=== PATIENT | female | born 1990 | race Caucasian/White ===

== ENCOUNTER 2021-09-24 14:49 | Outpatient (CLI) | payer BC, SELFPAY ==
--- OUTSIDE RECORDS SUMMARY | 2021-09-24 14:51 | XMS_ITS ---
:1990 Author Care Team Providers Name Role Phone Riley Castillo Primary Care Provider Unavailable Allergies None recorded. Medications Name Status Start Date Stop Date ? ? norethindrone (contraceptive) 0.35 mg tablet Active ? Not available TAKE 1 TABLET BY MOUTH DAILY sertraline 25 mg tablet Active ? Not avai lable sertraline 50 mg tablet Active ? Not avai lable Problems None recorded. Procedures None recorded. Results Lab Results Date Name Specimen Result Interpretation Description Value Range Status Address ? 12/27/2020 Rapid SARS CoV Nasopharyngeal ? Results negative ? ? Drew [facility] Ag, QL [place]: Specimen [id number] [facility] Past Encounters 01/10/2021 Exposure to SARS-CoV-2; Counseling Riley Castillo APRN-BLOW DOWN HELPER-C: [id number] [place] [address], Ph. [phone] 12/27/2020 Exposure to SARS-CoV-2; Counseling Riley Castillo APRN-BLOW DOWN HELPER-C: [address] [place] [address], Ph. [phone] Social History None recorded. Vaccine List None recorded. Plan of Care Patient Instructions Keep a safe distance. ... ? Wear a mask. ... ? Encourage proper hygiene. ... ? The best way to protect yourself and o thers is to stay home for 14 days if you think you’ve been exposed to someone who has COVID-19. ? Watch for fever (100.4?F or higher), c ough, shortness of breath, or other symptoms of COVID-19. ? Consider getting tested for COVID-19. Even if you test negative for COVID-19 or feel healthy, you should still stay home (quarantine) for 14 days after your last contact with a person who has COV ID-19. This is because symptoms may appe ar 2 to 14 days after exposure to the virus, and some infected people never have symptoms but are still contagious. ? Do not travel until 14 days after your last possible exposure. ? Monitor yourself and household members for symptoms of COVID-19. ? Get information about COVID-19 testing if you feel sick. Look for emergency warning signs* for CO VID-19. If you have any of these signs, seek emergency medical care immediately ? Trouble breathing ? Persistent pain or pressure in the [address] ? New confusion ? Inability to wake or stay awake Keep a safe distance. ... ? Wear a mask. ... ? Encourage proper hygiene. ... ? The best way to protect yourself and o thers is to stay home for 14 days if you think you’ve been exposed to someone who has COVID-19. ? Watch for fever (100.4?F or higher), c ough, shortness of breath, or other symptoms of COVID-19. ? Consider getting tested for COVID-19. Even if you test negative for COVID-19 or feel healthy, you should still stay home (quarantine) for 14 days after your last contact with a person who has COV ID-19. This is because symptoms may appe ar 2 to 14 days after exposure to the virus, and some infected people never have symptoms but are still contagious. ? Do not travel until 14 days after your last possible exposure. ? Monitor yourself and household members for symptoms of COVID-19. ? Get information about COVID-19 testing if you feel sick. Look for emergency warning signs* for CO VID-19. If you have any of these signs, seek emergency medical care immediately ? Trouble breathing ? Persistent pain or pressure in the imel[address] ? New confusion ? Inability to wake or stay awake Reminders Provider Appointments None recorded. ? ? Lab None recorded. ? ? Referral None recorded. ? ? Procedures None recorded. ? ? Surgeries None recorded. ? ? Imaging None recorded. ? ? Vitals None recorded.
[2021-09-26 08:26] LABS: Strep B DNA Probe NEGATIVE (Negative)
== END 2021-09-24 14:50 | disposition home or self-care (01) ==
LOC: NFLDREF 14:50
PROVIDERS: Visit Provider Obstetrics & Gynecology
DX: Z34.93 Encounter for supervision of normal pregnancy, unspecified, third trimester (principal); Z3A.35 35 weeks gestation of pregnancy
CPT/HCPCS: 87081; 87653

== ENCOUNTER 2021-10-17 23:52 | Inpatient (IN) | payer BC, SELFPAY ==
--- OUTSIDE RECORDS SUMMARY | 2021-10-17 23:52 | XMS_ITS ---
[...] [place]: Specimen [id number] [facility] Past Encounters 01/10/2021 Exposure to SARS-CoV-2; Counseling Riley Castillo APRN-LEVEL [employer]MING MACHINE OPERATOR-C: [address] [place] [address], Ph. [phone] 12/27/2020 Exposure to SARS-CoV-2; Counseling Riley Castillo APRN-LEVEL [employer] FORMING MACHINE OPERATOR-C: [address] [place] [address], Ph. [phone] Social History None recorded. Vaccine List None [...]
[2021-10-18] VITALS (30 sets, daily range): BP systolic 97–127; BP diastolic 51–72; PULSE 57–90; RESP 16–18; TEMP 36.4–36.8; O2SAT 88–99; BMI 26.0
[2021-10-18] MEDS: fentaNYL 100 MCG/2 ML inj IVP (00:17)
[2021-10-18] MEDS: ONDANSETRON 2 MG/ML inj 4 MG IV (00:18)
[2021-10-18] MEDS: LACTATED RINGERS 1000 ML 1,000 ML IV (00:20)
--- NOTE | 2021-10-18 01:02 | P.ANBPRC_ITS ---
[facility] Medical History History of abnormal cervical Papanicolaou smear Surgical History History of placement of ear tubes Status post loop electrosurgical excision procedure (LEEP) of cervix Social History Smoking Status: Never smoker Meds Home Medications and Allergies Home Medications Medication Instructions Recorded Confirmed Type docosahexaenoic acid 200 mg 200 mg PO QDAY 08/15/21 10/17/21 History capsule ( DHA) ferrous sulfate 325 mg (65 mg 325 mg PO DAILY 08/15/21 10/17/21 History iron) tablet magnesium oxide 400 mg (241.3 mg 400 mg PO DAILY 08/15/21 10/17/21 History magnesium) tablet Allergies Allergy/AdvReac Type Severity Reaction Status Date / Time No Known Allergies Allergy Unknown Verified 10/17/21 14:51 Results Vital Signs Vital Signs: Last Vital Signs Pulse 59 L 10/18/21 00:58 BP 108/53 L 10/18/21 00:58 Pulse Ox 92 10/18/21 00:52 Anesthesia Procedures Intrathecal Patient Location: OB Start Time: 00:25 Stop Time: 00:55 Start Date: 10/18/21 Stop Date: 10/18/21 Reason for Block: primary anesthetic Patient Position: sitting Performed By: Mando Hernandez Preanesthetic Checklist: IV checked, risks and benefits discussed and anesthesia consent Prep: chlorhexidine gluconate Monitoring: blood pressure monitoring, continuous pulse oximetry and heart rate Approach: midline Vertebral Space: lumbar (1-5) Needle Type: Sprotte Injection Technique: single-shot Needle gauge: 25 Needle Length (cm): 10 cm
[2021-10-18] MEDS: OXYTOCIN 30 unit/500 ML in NS 30 UNIT/500 ML BAG 325 UNIT IVPB (01:25)
[2021-10-18 01:31] LABS: SARS PCR* Negative SARS-CoV-2 (Negative)
--- NOTE | 2021-10-18 01:46 | W.PM.LDBA ---
Subjective History of Present Illness Date Seen: 10/18/21 Narrative: Patient is being admitted to Labor and Delivery for active labor at term. She is a 31 year old at 39.0 weeks gestation. Her full history and physical was dictated by Dr. Altamirano on 10/11/21. Please see this for details. She arrived to L&D lupillo every 2-3 min and breathing through them. She was admitted at that time and was requesting an epidural. I was called in a short time later as she was 8cm and feeling an urge to push. when I arrived on the unit she has received an intrathecal. She was more comfortable than perviously but still feeling a lot of pressure and an urge to push. She was complete at that time. Previous records requested.? Reviewed outside records on 04/25/21: included only third trimester visit records from in 2018. 1. H/o LEEP in 2016: NATHAN 3 with negative margins Last pap: 10/2019: NIL, neg HPV 2. H/o anxiety and depression: Sertraline 50mg 3. Anemia.? Hemoglobin 10.5 on 07/25/2021. Begin iron supplement 325 mg daily. Recheck Hgb @ 36 weeks:? 11.3 on 09/25/2019 OB - H&P: Exam Physical Exam: Vital signs: Pulse BP Pulse Ox 69 121/70 92 10/18/21 01:42 10/18/21 01:42 10/18/21 00:52 Constitutional: Constitutional: no acute distress Routine HEENT Exam: Head: Present normal inspection Eye: Present normal appearance Routine Neck Exam: Neck: Present full ROM Routine Respiratory Exam: Respiratory: Present CTA bilaterally Routine Cardiovascular Exam: Cardiovascular: RRR Detailed Labor and Delivery Exam: Patient Gravid: yes Dilation (cm): 10 Effacement (%): 100 Tachysystole: No Contraction intensity: Strong/Firm Fetus (Single): Station: 0 Amniotic Membrane Status: AROM Amniotic Membrane Fluid Description: Clear Heart Rate Baseline: 120 Monitor Accelerations: Present Monitor Decelerations: Late Detention Variability: Moderate (11-25) (6-25) Routine Extremities Exam: Extremities: Present full ROM Routine Back/Spine/Pelvis Exam: Back/Spine: full ROM Routine Neurological Exam: Present alert and oriented X3 Routine Psychiatric Exam: Present normal affect and normal thought process OB - Problem Based A/P Additional Plan (1) Active labor at term: Status: Acute Plan ASSESSMENT:? at 39.0 weeks gestation? GBS negative? Uncomplicated ? Active labor at term? ?? PLAN:? 1. Candidate for analgesia of choice. Planning unmedicated .? 2. Anticipate ? 3. Expectant management at this time.? 4. IV in place and infusing 5. Continuous monitoring per unit policy? Delivery/Labor/Induction Plan Plan: expectant management
--- NOTE | 2021-10-18 01:57 | PM.OBPRCVD ---
Procedure Delivery date: 10/18/21 Procedure Done: Global Procedure Details: Patient is a 31 year-old G4 now P3 admitted on 10/18/21 at 39 Weeks, 0 Days gestation for active labor.? Cervical exam on admission was 4 cm per RN exam with membranes intact in vertex presentation.? Contractions were every 2-3 minutes.? heart rate demonstrated baseline 120 bpm with moderate variability, + accelerations, occasional variable decelerations; a category 2 tracing.? AROM occurred at 0106 with clear fluid.? ?? Labor Analgesia:? ITN ?? Pitocin:? Yes, after delivery only? ?? Labor onset:? 2229? ?? Complete:? 0043? ?? Pushing:? 0109? ?? heart tones during second stage were 2. Some variable decelerations with good return to baseline and good variability with accels.? ?? At 0120 a viable male delivered in vertex SELENA presentation over intact perineum via spontaneous vaginal delivery.? was placed on maternal abdomen.? Cord was clamped and cut after about 1 minute delay so that baby could be taken to the warmer for closer assessment.? Nose and mouth were bulb suctioned.? weight pending.? 7 at 1 minute and 9 at 5 minutes.? Shoulder dystocia: no.? Nuchal cord: no.? ?? Placenta delivered spontaneously and complete at 0125 with a 3 vessel cord.? ?? Mother and were stable after delivery.? ?? Lacerations:? 1st degree periurethral and 1st degree perineal, neither requiring repair.? ?? Blood loss: 150 mL.? Blood loss measurement type: QBL? Sponge and needles counts are correct.? Intrapartal Events: Precipitous Labor <3 Hrs Delivery augmentation: rupture of membranes Delivery monitor: external FHT and external uterine Route of delivery: Episiotomy description: None Laceration description: Perineal - 1st Degree (plus a small 1st degree periurethral. Neither needed to be repaired.) Estimated blood loss (mL): 150 Anesthesia type: intrathecal Disposition: floor Infant Gender: Male presentation: vertex Placental Delivery Description: Spontaneous Cord Description: 3 Vessels [place] Infant A Position: Left Occiput Transverse OB Vag Delivery Procedures Additional Procedures ECV: No Cook Catheter Insertion: No NST: Yes D&C: No Laceration Repair: No Tubal Ligation : No Other: No
[2021-10-18] MEDS: IBUPROFEN 600 MG TABLET PO ×2 (04:22→13:56)
[2021-10-18] MEDS: SERTRALINE 50 MG TABLET PO (08:36)
[2021-10-18] MEDS: DOCUSATE SODIUM 100 MG CAPSULE PO (08:36)
[2021-10-18] MEDS: ACETAMINOPHEN 500 MG TABLET 1000 MG PO (17:59)
[2021-10-19 02:30] VITALS: BP 99/67; PULSE 76; RESP 16; TEMP 36.4
[2021-10-19] MEDS: ACETAMINOPHEN 500 MG TABLET 1000 MG PO ×2 (03:14→08:13)
[2021-10-19 07:33] LABS: Hemoglobin* 12.1 gm/dL (12.0-16.0)
--- NOTE | 2021-10-19 08:03 | PM.OBDSVD1 ---
DS: Providers Provider Date Seen: 10/19/21 Date of admission: 10/17/21 23:52 Primary care physician: Not a Local Provider Admitting Clinician: Genesis Martinez CNM Attending Physician on discharge: Genesis Martinez CNM Date of Discharge: 10/19/21 Exam Const: Vital Signs, click to edit/add: Vital Signs - 24 hr 10/18/21 09:30 10/18/21 12:30 10/18/21 18:00 Temperature 97.9 F 97.9 F 97.6 F Pulse Rate [Pulse Oximeter] 66 77 75 Respiratory Rate 16 16 16 Blood Pressure [Le ft Arm] 106/72 101/68 106/72 Pulse Oximetry 99 98 98 Oxygen Delivery Me thod Room Air Room Air Room Air 10/18/21 20:26 10/19/21 02:30 Temperature 97.9 F 97.6 F Pulse Rate [Pulse Oximeter] 76 76 Respiratory Rate 16 16 Blood Pressure [Le ft Arm] 102/69 99/67 Pulse Oximetry Oxygen Delivery Me thod Room Air Room Air Documenting provider has reviewed patient's vital signs: yes Common normals: no apparent distress, average body habitus, oriented x3, no limitations, healthy appearing, alert and well nourished HENMT: Common normals: normocephalic, hearing grossly normal bilaterally and external nose normal Head and scalp: normocephalic Face and sinus: normal facial exam Nose: external nose normal Eye: General eye: normal appearance of both eyes Neck & C-Spine: Common normals: full ROM, supple and no JVD Resp: Common normals: normal respiratory effort, no retractions, no use of accessory muscles and clear to auscultation bilaterally Auscultation: clear to auscultation bilaterally Cardio: Common normals: no JVD, regular rate, regular rhythm, S1 normal heart sound, S2 normal heart sound, no gallops, no clicks, no murmurs and no rub Rate: regular rate Rhythm: regular rhythm Heart sounds: S1 normal and S2 normal GI: Common normals: soft to palpation and non-tender Palpation: soft : OB/external & speculum: Yes deferred Extremity: Common normals: full ROM Neuro: Common normals: oriented x3 Sensorium/orientation: alert Psych: Common normals: mental status grossly normal and thought process normal Thought process: normal thought process OB - DS: Summary Hospital Course Hospital Course: Day 1:? Vaginal Delivery at 39 and 0/7 weeks. The patient is a 31 year old G 4 P 3 at 39.0 weeks gestation that was admitted to the [facility] on 10/17/21 for active labor. She had an uncomplicated vaginal delivery. She delivered a viable male infant.?The patient feels well.? The pain is well controlled with current medications.? She has no new complaints.? Urinary output is adequate and she is voiding without difficulty.? Has a good appetite, is tolerating a general diet, is passing flatus, and has not had a bowel movement.? Has?small amount of rubra lochia.? She is ambulating well.?She is breast feeding and denies concerns with how it is going. the patient has done well. Peripartum Data delivery method: Vaginal Laceration description: Perineal - 1st Degree (without repair) Episiotomy description: None complications: none [place] Infant Gender: Male Discharge Plan: Home Status at Discharge Functional status at discharge: independent ambulation Overall status at discharge: patient is progressing back to baseline Time Spent with Patient Time attestation: Total time spent providing and/or coordinating discharge services: Discharge Plan Discharge Disposition: Home, Self-Care Date of Admission: 10/17/21 23:52 Primary Care Provider: Provider,Not a Local Condition: Stable Anticipated Discharge Date/Time: 10/19/21 10:00 Discharge Medications: New docusate sodium 100 mg Capsule 100 mg PO DAILY PRNQty: 100 0RF Rx Instructions: Take 1-2 tablets daily as needed for constipation ibuprofen 600 mg Tablet 600 mg PO Q6H PRNQty: 60 0RF Continued DHA 200 mg capsule 200 mg PO QDAY sertraline 50 mg tablet 50 mg PO QDAY Qty: 90 2RF Discontinued magnesium oxide 400 mg (241.3 mg magnesium) tablet 400 mg PO DAILY ferrous sulfate 325 mg (65 mg iron) tablet 325 mg PO DAILY Discharge Orders: Discharge Order (Routine); Ordered 10/19/21 Ordered By: Genesis Martinez Patient Education: OB Vaginal/Breast Feeding Activity Restrictions/Additional Instructions: Discharge instructions were reviewed with the patient including signs and symptoms of infection and home going medications.? Off Work or School for 6 weeks.? ?? Symptoms to report to doctor:? -Bleeding that saturates more than one pad per hour? -Passing clots larger than the size of a golf ball? -Pain not relieved by prescribed medication? -Fever above 100.4 degrees Fahrenheit? -A foul vaginal odor? -Difficulty in emotions, mood and functions? -Thoughts of hurting yourself and/or ? -Painful, reddened area in your breast? -Any drainage, redness or tenderness in your IV/epidural site? -Severe headache that doesn't improve after taking medications? -Changes in vision, including temporary loss of vision, blurred vision, and/or light sensitivity? -Upper abdominal pain (usually under ribs on the right side)? -Decrease in urination or painful, frequent urinating? -Chest pain? -Shortness of breath? -Tenderness or pain with redness and/swelling in the calf(s) of your leg? ?? Follow Up in clinic in 2 and 6 weeks.? ?? consultation services are available to all mothers and babies for the first year after delivery.? To make an appointment, please call [phone].? Activity Level: No Restrictions and Activity as Tolerated Discharge Diet: Regular Follow Up Appointments: Provider,Not a Local [Primary Care Provider] - Forms: MyHealth Info Instructions
[2021-10-19] MEDS: DOCUSATE SODIUM 100 MG CAPSULE PO (08:13)
[2021-10-19 08:22] VITALS: BP 103/68; PULSE 76; RESP 20; TEMP 36.7; O2SAT 99
== END 2021-10-19 10:00 | disposition home or self-care (01) | DRG 560 ==
LOC: OB 10-18 06:32
PROVIDERS: Admitting Provider Advanced Practice Midwife; Visit Provider Advanced Practice Midwife
DX: O99.344 Other mental disorders complicating childbirth (principal); F41.9 Anxiety disorder, unspecified; F32.A Depression, unspecified; O70.0 First degree perineal laceration during delivery; O99.02 Anemia complicating childbirth; D64.9 Anemia, unspecified; Z37.0 Single live birth; Z3A.39 39 weeks gestation of pregnancy
CPT/HCPCS: 01967; 36415; 85018; 87635; 99213; A9270; J2405; J3010; J7120

== ENCOUNTER 2021-12-26 10:31 | Outpatient (CLI) | payer BC, SELFPAY ==
--- NOTE | 2021-12-26 10:45 | CRLHL7_ITS ---
For Patients: As a result of the Cures Act, medical imaging exams and procedure reports are released immediately into your electronic medical record. You may view this report before your referring provider. If you have questions, please contact your health care provider. DIGITAL DIAGNOSTIC LEFT MAMMOGRAM USING TOMOSYNTHESIS AND COMPUTER-AIDED DETECTION LEFT BREAST ULTRASOUND CLINICAL HISTORY: LEFT breast pain. COMPARISON: None. TECHNIQUE: Digital LEFT mammogram in two projections. Tomosynthesis and CAD utilized. Real-time ultrasound imaging of LEFT breast with imaging documentation. BREAST COMPOSITION: The breast is extremely dense, which lowers the sensitivity of mammography. FINDINGS: 3D CC/MLO LEFT breast mammograms submitted. No suspicious masses or architectural distortion. No suspicious calcifications or adenopathy. Targeted LEFT breast ultrasound performed in the area of concern at 8-10 o`clock 4 cm from the nipple. Normal dense fibroglandular tissue is present. No fluid collection or mass. IMPRESSION: Normal LEFT breast mammograms and targeted LEFT breast ultrasound. RECOMMENDATIONS: Clinical follow-up. Age-appropriate screening mammography. Results and recommendations discussed with the patient. BI-RADS Category 2: Benign A lay language report of this examination will be provided to the patient. Dictated by Severiano Henderson MD @ 12/26/2021 11:58:32 AM jj/Dictated by: Severiano Hendreson MD @ 12/26/2021 11:58:00 AM (Electronically Signed)
--- NOTE | 2021-12-26 11:15 | CRLHL7_ITS ---
For Patients: As a result of the Cures Act, medical imaging exams and procedure reports are released immediately into your electronic medical record. You may view this report before your referring provider. If you have questions, please contact your health care provider. PLEASE SEE DIGITAL DIAGNOSTIC LEFT MAMMOGRAM PERFORMED SAME DAY CRL:navneet toth/Dictated by: Severiano Henderson MD @ 12/26/2021 11:58:00 AM (Electronically Signed)
== END 2021-12-26 10:32 | disposition home or self-care (01) ==
LOC: MAMMO 10:31
PROVIDERS: Visit Provider Physician Assistant
DX: N64.4 Mastodynia (principal)
CPT/HCPCS: 76642; 77065; G0279

== ENCOUNTER 2022-06-07 12:11 | Outpatient (CLI) | payer BC, SELFPAY ==
[2022-06-07 15:34] LABS: Chlamydia DNA Amplified* NOT DETECTED (No Detected); GC DNA Amplified* NOT DETECTED (No Detected)
== END 2022-06-07 12:12 | disposition home or self-care (01) ==
PROVIDERS: Visit Provider Registered Nurse
DX: N89.8 Other specified noninflammatory disorders of vagina (principal)
CPT/HCPCS: 87491; 87591

== ENCOUNTER 2023-03-07 13:51 | Outpatient (CLI) | payer BC, SELFPAY | END 2023-03-07 13:52 | disposition home or self-care (01) | PROVIDERS: Visit Provider Registered Nurse | DX: Z13.1 Encounter for screening for diabetes mellitus (principal); Z13.220 Encounter for screening for lipoid disorders | CPT/HCPCS: 80061; 82947 ==

== ENCOUNTER 2023-08-26 11:12 | Outpatient (CLI) | payer BC, SELFPAY ==
--- OUTSIDE RECORDS SUMMARY | 2023-08-26 11:14 | XMS_ITS | Data Portability ---
Author Organization [facility] [employer] [facility], [facility] Address [address] [place] [id number] Assessment No assessment recorded. Plan of Treatment Reminders Order Date Submit Date Provider Last Modified By Organization Details Last Modified Time Details Appointments None recorded. Lab rapid SARS CoV 2 Ag, QL IA, respiratory specimen 2020 021 [email or web address] [facility], [address] [place] [address], [id number], 13:26:29 rapid SARS CoV 2 Ag, QL IA, respiratory specimen 2020 021 [facility], [address] [place] [address], [phone], 16:05:19 Referral None recorded. Procedures None recorded. Surgeries None recorded. Imaging None recorded. Medication Orders None recorded. Patient TargetsNo targets recorded. Patient Instructions Encounter Date Encounter Id Patient Instructions Last Modified By Organization Details Last Modified Time 12/27/2020 [id number] Keep a safe distance. ... ?? Wear a mask. ... ?? Encourage proper hygiene. ... ?? The best way to protect yourself and others is to stay home for 14 days if you think you? ve been exposed to someone who has COVID-19. ?? Watch for fever (100.4??F or higher), cough, shortness of breath, or other symptoms of COVID-19. ?? Consider getting tested for COVID-19. Even if you test negative for COVID-19 or feel healthy, you should still stay home (quarantine) for 14 days after your last contact with a person who has COVID-19. This is because symptoms may appear 2 to 14 days after exposure to the virus, and some infected people never have symptoms but are still contagious. ?? Do not travel until 14 days after your last possible exposure. ?? Monitor yourself and household members for symptoms of COVID-19. ?? Get information about COVID-19 testing if you feel sick. Look for emergency warning signs* for COVID-19. If you have any of these signs, seek emergency medical care immediately ?? Trouble breathing ?? Persistent pain or pressure in the chest ?? New confusion ?? Inability to wake or stay awake [email or web address] Not available 12/29/2020 13:26:26 01/10/2021 [id number] Keep a safe distance. ... ?? Wear a mask. ... ?? Encourage proper hygiene. ... ?? The best way to protect yourself and others is to stay home for 14 days if you think you? ve been exposed to someone who has COVID-19. ?? Watch for fever (100.4??F or higher), cough, shortness of breath, or other symptoms of COVID-19. ?? Consider getting tested for COVID-19. Even if you test negative for COVID-19 or feel healthy, you should still stay home (quarantine) for 14 days after your last contact with a person who has COVID-19. This is because symptoms may appear 2 to 14 days after exposure to the virus, and some infected people never have symptoms but are still contagious. ?? Do not travel until 14 days after your last possible exposure. ?? Monitor yourself and household members for symptoms of COVID-19. ?? Get information about COVID-19 testing if you feel sick. Look for emergency warning signs* for COVID-19. If you have any of these signs, seek emergency medical care immediately ?? Trouble breathing ?? Persistent pain or pressure in the chest ?? New confusion ?? Inability to wake or stay awake [email or web address] Not available 01/10/2021 14:18:13 Reason for Referral None Reported. Results Created Date Observation Date Name Description Value Unit Range Abnormal Flag LastModifiedBy Organization Detail LastModifiedTime 12/28/19 21 12/27/2020 rapid SARS CoV 2 Ag, QL IA, respi rator y speci men Results negati ve Not Available [address], [phone], 12/27/2020 16:23:12 Result Notes None recorded. Medical Equipment None Reported. Medications Name Sig Start Date Stop Date Status Note LastModified by Organization Details LastModified Time sertraline 25 mg tablet TAKE 1 TABLETS BY MOUTH DAILY ALONG WITH 50MG FOR A TOTAL DAILY DOSE OF 75MG active Not Available Not Available No t Available norethindrone (contraceptive) 0.35 mg tablet TAKE 1 TABLET BY MOUTH DAILY active Not Available Not Available No t Available sertraline 50 mg tablet TAKE 1 TABLET BY MOUTH DAILY active Not Available Not Available No t Available Vitals None Recorded Social History None recorded. Functional Status None recorded. Mental Status None recorded. Family History Nothing Reported. Medical History No medical history recorded. Gynecological HistoryNo gynecological history recorded. Obstetrics History GPAL:G 0 P 0 0 0 0 Past Encounters Encounter ID Performer Location Encounter Start Date Encounter Closed Date Diagnosis/Indication Diagnosis SNOMED-CT Code [id number] Riley Castillo DNP, RETORT FURNACE OPERATOR, FURNACE BUILDER-BC [address] [address] 12/27/2020 16:16:00 12/27/2020 16:27:27 Exposure to SARS-CoV-2 [id number] Counseling [id number] Riley Castillo APRN-OCCUP THERAPIST-C [address] [address] 01/10/2021 14:13:40 01/19/2021 16:05:33 Exposure to SARS-CoV-2 [id number] Counseling [id number] Health Concerns Section Related Observation LastModified by Organization Detai ls LastModified Time None Recorded Concern Status LastModified by Organization Details LastModified Time None Recorded Advance Directives Directive None Recorded Payers Encounter Date Sequence Insurance Name Policy Number Policy Perez Covered Member ID Perez Member ID Guarantor Name 12/27/2020 1 [place] CARLOZPARISA [facility] [id number] Leoncio Velez 01/10/2021 1 [place] CARLOZPARISA [facility] [id number] [facility] Notes Date Note Type Note Provider Name and Address Organization Details Recorded Time 12/27/2020 text/html HPI Notes: Patient is here for COVID19 testing after exposure. Patient denies cough, sore throat, no fevers / chills, no SOB or headaches. Otherwise doing well. patient does not have members of the household at increased risk of complications; patient does have resources to access food and other necessities; patient does have separate bedroom and bathroom for patient; patient is able to adhere to hand hygiene and cough etiquette practices Riley Castillo DNP, RETORT FURNACE OPERATOR, FURNACE BUILDER-BC [address] [place], [address], Retora Black 12/29/2020 13:26:34 01/10/2021 text/html HPI Notes: No symptoms reported. Riley Castillo APRN-OCCUP THERAPIST-C [address] [place], [address], Retora Black 01/19/2021 16:05:26 OBGyn Episode No OBEpisode recorded.
--- NOTE | 2023-08-26 11:15 | CRLHL7_ITS ---
For Patients: As a result of the Cures Act, medical imaging exams and procedure reports are released immediately into your electronic medical record. You may view this report before your referring provider. If you have questions, please contact your health care provider. INDICATION: First trimester scan, establish dates. COMPARISON: None. TECHNIQUE: Real-time bello-scale imaging of the pelvis was performed. FINDINGS: Sonographic imaging demonstrates a single living intrauterine gestation. The embryo demonstrates a regular cardiac rate measuring 169 beats per minute. The embryo`s crown-rump length measurement of 1.6 cm corresponds to a gestational age of 8 weeks 0 days with a sonographic due date of 04/06/2024. There is a normal-appearing yolk sac. There are no gross abnormalities noted within the embryo at this early state of development. The gestational sac has a normal appearance. There is a 19 x 5 x 17 millimeter perigestational hemorrhage. The amount of fluid within the sac appears appropriate for gestational age. The cervix is closed. The myometrium appears normal. Corpus luteal cyst left ovary. Right ovary unremarkable. There are no suspicious fluid collections noted in the cul-de-sac. IMPRESSION: Single living intrauterine with sonographic gestational age 8 weeks 0 days and sonographic due date of 04/06/2024. Subchorionic hemorrhage measures 19 x 5 x 17 millimeters. Dictated by Severiano Henderson MD @ 08/26/2023 12:18:31 PM (Electronically Signed)
== END 2023-08-26 11:13 | disposition home or self-care (01) ==
LOC: US 11:13
PROVIDERS: Visit Provider Advanced Practice Midwife
DX: Z34.91 Encounter for supervision of normal pregnancy, unspecified, first trimester (principal); O20.9 Hemorrhage in early pregnancy, unspecified; Z3A.08 8 weeks gestation of pregnancy
CPT/HCPCS: 76817; 84443; 86592; 86703; 86704; 86706; 86762; 86787; 86803; 86850; 86900; 86901; 87086; 87340

== ENCOUNTER 2023-11-17 09:06 | Outpatient (CLI) | payer BC, SELFPAY ==
--- NOTE | 2023-11-17 09:15 | CRLHL7_ITS ---
For Patients: As a result of the Century Cures Act, medical imaging exams and procedure reports are released immediately into your electronic medical record. You may view this report before your referring provider. If you have questions, please contact your health care provider. INDICATION: Evaluate anatomy. COMPARISON: 08/26/2023 TECHNIQUE: Real time bello scale imaging of the fetus was performed as well as color Doppler analysis of the umbilical vessels. FINDINGS: Sonographic imaging demonstrates a single living intrauterine gestation. Fetus demonstrates a regular cardiac rate of 150 beats per minute. Fetus has a variable position. The placenta lies right posterior without evidence of placenta previa. Edge of the placenta is located 5.9 cm from the internal cervical os. Amniotic fluid volume appears normal. Single deepest vertical pocket: 5.0 cm. The cervix is closed and measures 4.2 cm in length. The composite ultrasound gestational age is calculated at 20 weeks 5 days with an estimated sonographic due date of 03/31/2024. The estimated weight is 373 grams which lies at the 90th %. The following biometric measurements were obtained: Biparietal diameter: 4.7 cm/20 weeks 2 days 66th% Head circumference: 18.1 cm/20 weeks 3 day 71st% Abdominal circumference: 16.1 cm/21 weeks 1 day 84th% Femur length: 3.3 cm/20 weeks 2 days 59th% The HC/AC ratio measures: 1.12 range (1.06-1.25) On anatomic survey, there is a normal appearance of the cerebral ventricles, cavum septi pellucidi, cisterna magna and cerebellum. Incomplete visualization of the nose, lips and profile. The cervical, thoracic and lumbar spine are well visualized and appear normal. There is a normal four-chamber heart view and the left and right ventricular outflow tracts appear normal. The diaphragm and stomach appear normal. The kidneys and bladder also appear normal. There is a normal three-vessel cord and cord insertion site. The four extremities appear normal. IMPRESSION: Sonographic gestational age 20 weeks 5 days and sonographic due date of 03/31/2024. Sonographic age is 6 days ahead of the clinical age. Estimated weight 98th percentile. Abdominal circumference 84th percentile. Incomplete visualization of the nose, lips and profile. Remainder of the anatomic survey normal. Short-term follow-up recommended. Dictated by Severiano Henderson MD @ 11/17/2023 12:29:33 PM (Electronically Signed)
== END 2023-11-17 09:07 | disposition home or self-care (01) ==
LOC: US 09:08
PROVIDERS: Visit Provider Obstetrics & Gynecology
DX: Z34.92 Encounter for supervision of normal pregnancy, unspecified, second trimester (principal); O35.AXX0 Maternal care for other (suspected) fetal abnormality and damage, fetal facial anomalies, not applicable or unspecified; Z3A.20 20 weeks gestation of pregnancy
CPT/HCPCS: 76805

== ENCOUNTER 2023-12-16 10:06 | Outpatient (CLI) | payer BC, SELFPAY ==
--- NOTE | 2023-12-16 10:15 | CRLHL7_ITS ---
For Patients: As a result of the Century Cures Act, medical imaging exams and procedure reports are released immediately into your electronic medical record. You may view this report before your referring provider. If you have questions, please contact your health care provider. HISTORY: Completion of anatomic survey COMPARISON: Report of the Ob ultrasound from 11/17/2023. TECHNIQUE: Ultrasound examination of the is performed with transabdominal technique. FINDINGS: A single intrauterine gestation is seen in breech presentation with regular cardiac activity at 167 beats per minute. The placenta is posterior and is free of the cervical os. The placental grade is 1 and the amniotic fluid volume is normal. Single deepest vertical pocket: Normal at 5.7 cm. facial profile, nose, and lips are examined and are normal in appearance. This completes the anatomic survey. IMPRESSION: 1. Single intrauterine gestation in breech presentation with regular cardiac activity. 2. Deepest vertical pocket normal at 5.7 cm. 3. Completion of anatomic survey as described above. Dictated by Braeden Menon MD @ 12/16/2023 10:27:16 PM (Electronically Signed)
== END 2023-12-16 10:07 | disposition home or self-care (01) ==
LOC: US 10:06
PROVIDERS: Visit Provider Obstetrics & Gynecology
DX: Z34.90 Encounter for supervision of normal pregnancy, unspecified, unspecified trimester (principal)
CPT/HCPCS: 76816

== ENCOUNTER 2024-01-12 10:44 | Outpatient (CLI) | payer BC, SELFPAY | END 2024-01-12 10:45 | disposition home or self-care (01) | LOC: NFLDREF 01-15 05:12 | PROVIDERS: Visit Provider Obstetrics & Gynecology | DX: Z34.92 Encounter for supervision of normal pregnancy, unspecified, second trimester (principal); Z3A.27 27 weeks gestation of pregnancy | CPT/HCPCS: 86592 ==

== ENCOUNTER 2024-01-16 08:14 | Outpatient (CLI) | payer BC, SELFPAY | END 2024-01-16 08:15 | disposition home or self-care (01) | LOC: NFLDREF 01-20 17:59 | PROVIDERS: Visit Provider Obstetrics & Gynecology | DX: O99.810 Abnormal glucose complicating pregnancy (principal); Z3A.27 27 weeks gestation of pregnancy | CPT/HCPCS: 82951; 82952 ==

== ENCOUNTER 2024-03-02 09:12 | Outpatient (CLI) | payer BC, SELFPAY ==
--- NOTE | 2024-03-02 09:15 | CRLHL7_ITS ---
For Patients: As a result of the Century Cures Act, medical imaging exams and procedure reports are released immediately into your electronic medical record. You may view this report before your referring provider. If you have questions, please contact your health care provider. OBSTETRICAL ULTRASOUND - FOLLOW-UP INDICATION: Uterine size date discrepancy. PRICE by US: 04/06/2024 Gestational age: 35 weeks 0 days GESTATION: Single COMPARISON: 12/16/2023, 11/17/2023, 08/26/2023 TECHNIQUE: Realtime bello-scale imaging of the fetus was performed transabdominal. FINDINGS: Cervix: Not visualized positioning: Vertex Amniotic fluid: 3.9 cm SDP Placenta technique: Transabdominal Placenta position: Posterior, right wall heart rate: 168 bpm BIOMETRY: BPD: 9.0 cm, 36 weeks 3 days, 86.8% HC: 32.2 cm, 36 weeks 3 days, 50.6% AC: 30.6 cm, 34 weeks 4 days, 42.5% FL: 6.7 cm, 34 weeks 2 days, 25.2% FL/AC Ratio: 21.8% HC/AC ratio: 1.1 EFW: 2530 grams; 5 lbs. 9 oz. age by this ultrasound: 35 weeks 3 days PRICE by this US: 04/03/2024 Percentile by PRICE: 42.1% IMPRESSION: Estimated weight is at the 42nd percentile. RODRIGUEZ HINES M.D. Body/Diagnostic Radiologist [email or web address] Transcribed: 4:[address]/Dictated by: Rodriguez Hines MD @ 03/02/2024 3:28:00 PM (Electronically Signed)
== END 2024-03-02 09:13 | disposition home or self-care (01) ==
LOC: US 09:13
PROVIDERS: Visit Provider Obstetrics & Gynecology
DX: O26.843 Uterine size-date discrepancy, third trimester (principal); Z3A.35 35 weeks gestation of pregnancy
CPT/HCPCS: 76816

== ENCOUNTER 2024-03-08 10:51 | Outpatient (CLI) | payer BC, SELFPAY ==
[2024-03-09 10:51] LABS: Strep B DNA Probe Negative (Negative)
[2024-03-09 10:53] LABS: Strep B Susceptibility Needed? No
== END 2024-03-08 10:52 | disposition home or self-care (01) ==
LOC: NFLDREF 10:51
PROVIDERS: Visit Provider Obstetrics & Gynecology
DX: Z34.93 Encounter for supervision of normal pregnancy, unspecified, third trimester (principal); Z3A.35 35 weeks gestation of pregnancy
CPT/HCPCS: 87081; 87653

== ENCOUNTER 2024-03-17 09:31 | Outpatient (CLI) | payer BC, SELFPAY ==
--- NOTE | 2024-03-17 09:30 | CRLHL7_ITS ---
For Patients: As a result of the Cures Act, medical imaging exams and procedure reports are released immediately into your electronic medical record. You may view this report before your referring provider. If you have questions, please contact your health care provider. OB ULTRASOUND FOLLOWUP LIMITED, 03/17/2024 CLINICAL HISTORY: Uterine size/date discrepancy, assess fluid level. COMPARISON: 03/02/2024, 12/16/2023, 11/17/2023. TECHNIQUE: Transabdominal OB ultrasound. FINDINGS: PRICE by US: 04/06/2024. GA: 37 weeks 1 day. Single. Cervix: Nonvisualized. Positioning: Vertex. Amniotic Fluid: 3.9 cm. PAUL = 10.3 cm. Placenta: Technique: TA. Placenta Position: Posterior. Dopplers: Heart Rate: 159 bpm. IMPRESSION: Normal amniotic fluid level with SDP of 3.9 cm and PAUL of 10.3 cm. Jesús Parker M.D. Body/Diagnostic Radiologist [email or web address] Transcribed: 1:45 pm DW/Dictated by: Jesús Parker MD @ 03/17/2024 1:35:00 PM (Electronically Signed)
== END 2024-03-17 09:32 | disposition home or self-care (01) ==
LOC: US 09:32
PROVIDERS: Visit Provider Registered Nurse
DX: O26.843 Uterine size-date discrepancy, third trimester (principal); Z3A.37 37 weeks gestation of pregnancy
CPT/HCPCS: 76815; 76816

== ENCOUNTER 2024-04-05 01:09 | Inpatient (IN) | payer BC, SELFPAY ==
[2024-04-05] VITALS (51 sets, daily range): BP systolic 78–158; BP diastolic 50–81; PULSE 71–134; RESP 16; TEMP 36.3–36.8; O2SAT 91–100; BMI 25.9
[2024-04-05 01:32] LABS: Basophils Percent Auto 0.2 % (0.0-3.0); Eosinophils Percent Auto 0.6 % (0.0-7.0); Hematocrit 34.6 % (33.0-51.0); Hemoglobin* 11.5 gm/dL (12.0-16.0); Immature Granulocytes Pct Auto 0.5 %; Lymphocytes Percent Auto 13.7 % (20-44); Mean Corpuscular HGB Conc 33 gm/dL (32-36); Mean Corpuscular Hemoglobin 31 pg (26-34); Mean Corpuscular Volume 93 fL (80-100); Platelet Count* 259 K/uL (140-440); RDW Coefficient of Variation % 14.1 % (11.5-15.5); Red Blood Count 3.74 m/uL (4.00-5.20); White Blood Count* 12.06 K/uL (4.50-11.00)
[2024-04-05 01:34] LABS: Slide Review Reflex No
[2024-04-05] MEDS: LIDOCAINE 2% (PF) 5 ML VIAL EPIDURAL (01:50)
[2024-04-05] MEDS: ROPIVACAINE 0.2% 100 ml 100 ML 12 MG EPIDURAL (01:50)
--- NOTE | 2024-04-05 01:52 | P.LDBA_ITS ---
Subjective History of Present Illness Narrative: Patient is being admitted to Labor and Delivery for labor. She is a 33 year old at 39.6 weeks gestation. Her full history and physical was dictated by Dr. Sheeba Lovett on 03/17/24. Please see this for details. Specific Issues/Plans Leoncio (fiance) H&P done on 03/16/24 by Sheeba Lovett [employer] #Hx of anxiety and depression on sertraline for 2 yrs none currently seeing therapist #Hx migraine with aura #S<D 03-16-24: 03-17-24: PAUL 10.3, SDP 3.9 (Growth not repeated, as it was completed 2 weeks ago) Ultrasound: 03/02/24: vertex, EFW 2530 g (42%), AC 42.5%, SDP 3.9 cm Flu:declines Covid: declines Tdap: 02/09/24 RSV: declines H&P: 03/16/24 OB - Problem Based A/P Additional Plan (1) : Status: Acute Delivery/Labor/Induction Plan Plan: expectant management OB Exam Physical Exam Vital signs: Pulse BP Pulse Ox 94 104/76 100 04/05/24 01:50 04/05/24 01:50 04/05/24 01:48 Narrative: Physical exam: General: No acute distress Psych: Alert and oriented x3, full affect HEENT: Normocephalic, atraumatic Heart: Regular rate and rhythm, no murmur rub or gallop Lungs: Clear to auscultation bilaterally Abdomen: soft, nontender, gravid, cephalic lie Lower extremities: No edema or erythema Pelvic exam: 9, with cervical lip remaining on patient's of side, 100%,-1 station, SELENA SROM on exam with clear fluid tracing: Baseline 120 / accelerations present / intermittent brief variable decelerations / moderate variability.
[2024-04-05] MEDS: LACTATED RINGERS 1000 ML 1,000 ML 125 ML IV (01:53)
--- NOTE | 2024-04-05 01:56 | PM.ANBPRC ---
[facility] Medical History Frequent headaches ?R51.9 - Headache, unspecified (ICD-10) NATHAN III (cervical intraepithelial neoplasia III) ?D06.9 - Carcinoma in situ of cervix, unspecified (ICD-10) History of abnormal cervical Papanicolaou smear ?Z87.42 - Personal history of other diseases of the female genital tract (ICD-10) Surgical History S/P tonsillectomy and adenoidectomy ?Z90.89 - Acquired absence of other organs (ICD-10) History of placement of ear tubes ?Z96.22 - Myringotomy tube(s) status (ICD-10) Status post loop electrosurgical excision procedure (LEEP) of cervix ?Z98.890 - Other specified postprocedural states (ICD-10) Family History (Updated 08/26/23 @ 14:03 by Yaa Drake CNM) Father FH: mental illness Mother Thyroid disease Social History (Updated 08/26/23 @ 16:17 by Yaa Drake CNM) Narrative: SOCIAL? ? Education: some college? ? Work: casino beverage server? ? Partner: Leoncio Calderon?been together 10 years works at [employer]? Lives with: Leoncio and her 3 kids, her daughter is from a previous relationship, 2 boys are with Leoncio? Pets: 3 dogs ? Abuse: Denies past. Safe at home with current partner ? ? ? Special Diet: Denies? ? Ok with a blood transfusion: yes? ? Culture or gnosticist beliefs: denies? RISK FACTORS? ? Exercise Times/wk: not regularly, walking at work? ? Depression/Anxiety: Sertraline for anxiety for 2 years recently discontinued as she felt flat in her emotions. She states she feels stable today? ? ? Therapy is currently in therapy [place]: 0 PHQ 9: 2? ? Seat Belt Use: Routinely ? Smoking: Denies past/present? ? Alcohol/day: Denies while ? ?rarely when not Caffeine: one cup coffee a day? ? Drug Use: Denies past/present? ? What is your current living situation?: I presently have a place to live Problems where you live: no known problems In the past 12 months, utilities in danger of being shut off: no In past 12 months, lack of transportation kept you from medical appts, meetings, work, or getting things needed for daily living: no In the past 12 mos, have been you worried that your food would run out before you had money to buy more?: never true In the past 12 mos, the food you bought just didn't last and you didn't have money to buy more?: never true Smoking Status: Never smoker How often does anyone, including family, friends and others, physically hurt you: never How often does anyone, including family, friends and others, insult or talk down to you: decline to answer How often does anyone, including family, friends and others, threaten you with harm: never How often does anyone, including family, friends and others, scream or curse at you: decline to answer Meds Home Medications and Allergies Home Medications ?Medication ?Instructions ?Recorded ?Confirmed ?Type multivitamin no.47-iron fum 27 cap PO 02/23/24 03/30/24 History mg-folate no.1 1 mg-dha 300 mg capsule (PNV-DHA) Allergies Allergy/AdvReac Type Severity Reaction Status Date / Time No Known Allergies Allergy Unknown Verified 03/30/24 10:12 Results Labs Labs: Laboratory Results - last 24 hr 04/05/24 01:25 WBC 12.06 H RBC 3.74 L Hgb 11.5 L Hct 34.6 MCV 93 MCH 31 MCHC 33 RDW Coeff of Shanika 14.1 Plt Count 259 Neut % (Auto) 76.0 H Lymph % (Auto) 13.7 L [place] % (Auto) 9.0 Eos % (Auto) 0.6 Baso % (Auto) 0.2 Neut # (Auto) 9.20 H Lymph # (Auto) 1.70 [place] # (Auto) 1.10 H Eos # (Auto) 0.10 Baso # (Auto) 0.00 Abs Immat Gran (auto) 0.10 Imm/Tot Granulo (auto) 0.5 Vital Signs Vital Signs: Last Vital Signs Pulse 76 04/05/24 01:54 BP 158/65 H 04/05/24 01:54 Pulse Ox 100 04/05/24 01:53 Weight: 73.028 kg Height: 167.64 cm Anesthesia Procedures Epidural Insertion Patient Location: OB Start Time: : Stop Time: : Start Date: 04/05/24 Stop Date: 04/05/24 Reason for Block: procedure for pain Patient Position: sitting Performed By: Anu Wilson Preanesthetic Checklist: IV checked, site marked, risks and benefits discussed, monitors and equipment checked, pre-op evaluation, timeout performed and anesthesia consent Prep: chlorhexidine gluconate Monitoring: blood pressure monitoring, continuous pulse oximetry and heart rate Approach: midline Vertebral Space: lumbar (1-5) Epidural Technique: VENKATA saline Needle Type: Tuohy needle Injection Technique: continuous catheter Needle gauge: 17 Needle Length (cm): 10 cm Needle Insertion Depth (cm): 6 Catheter Gauge: 19 Catheter Type: multi-orifice Catheter at skin depth (cm): 16 Test Dose Result: negative and lidocaine 1.5% with epinephrine 1 to 200,000
[2024-04-05] MEDS: ONDANSETRON 2 MG/ML inj 4 MG IV (02:34)
[2024-04-05] MEDS: PHENYLEPHRINE 100 MCG/ML SYRINGE IVP (02:46)
[2024-04-05] MEDS: OXYTOCIN 30 unit/500 ML in NS 30 UNIT/500 ML BAG 300 UNIT IVPB (02:47)
--- NOTE | 2024-04-05 02:59 | W.PM.VAGDEL1 ---
Procedure Delivery date: 04/05/24 Procedure Done: Global Intrapartal Events: Precipitous Labor <3 Hrs Delivery monitor: external FHT Route of delivery: Episiotomy description: None Laceration description: Periurethral - 1st Degree Estimated blood loss (mL): 50 Anesthesia type: Epidural Disposition: floor Complications: None Narrative: The patient is a 33 year-old G 5 P 3 woman admitted on 04/05/2024 at 39 Weeks, 6 Days gestation for labor.? Cervical exam on admission was 5 cm with membranes intact in vertex presentation.? CFetal heart rate demonstrated baseline 120 bpm with moderate variability, positive accelerations, brief variable decelerations; a category 2 tracing.? SROM occurred at 2:04 a.m. with clear fluid. ? Labor Analgesia:? Epidural ? Pitocin:? No ? Labor onset:? 1:10 a.m. ? Complete:? 2:25 a.m. ? Pushing:? 2:37 a.m. ? heart tones during second stage were notable for variable decelerations with contractions. ? At 2:48 a.m. a viable male delivered in vertex OA presentation over intact perineum via spontaneous vaginal delivery.? Infant was placed on maternal abdomen.? Cord was clamped and cut after a 30-60 second delay.? Nose and mouth were bulb suctioned.? Infant weight pending.? 8 at 1 minute and 8 at 5 minutes.? Shoulder dystocia: No.? Nuchal cord: No. ? Placenta delivered spontaneously and complete at 2:52 a.m. with a 3 vessel cord. ? Mother and infant were stable after delivery. ? Lacerations:? Shallow periurethral lacerations, which were hemostatic and did not require repair. ? Blood loss: 50 mL. Blood loss measurement type: EBL ? Sponge and needles counts are correct. [place] Infant Gender: Male presentation: vertex Placental Delivery Description: Spontaneous Cord Description: 3 Vessels [place] A Gender: Male presentation: vertex
[2024-04-05] MEDS: IBUPROFEN 600 MG TABLET PO ×4 (05:43→23:14)
--- NOTE | 2024-04-05 06:27 | PM.ANPOST ---
Post Anesthesia Note Post Anesthesia Note Patient seen: Inpatient Respiratory Status: adequate Cardiovascular Status: adequate Mental Status: baseline Pain: adequate Temp: baseline Anesthetic awareness: N/A Complications: none Follow care: none
[2024-04-05] MEDS: ACETAMINOPHEN 500 MG TABLET 1000 MG PO ×2 (13:24→19:38)
[2024-04-05] MEDS: DOCUSATE SODIUM 100 MG CAPSULE PO (16:22)
[2024-04-06 04:00] VITALS: BP 105/63; PULSE 83; RESP 12; TEMP 36.3; O2SAT 98
[2024-04-06 06:38] LABS: Hemoglobin* 11.2 gm/dL (12.0-16.0)
[2024-04-06 07:10] VITALS: BP 106/72; PULSE 79; RESP 18; TEMP 36.5; O2SAT 98
--- NOTE | 2024-04-06 07:17 | PM.OBDSVD1 ---
DS: Providers Provider Date Seen: 04/06/24 Date of admission: 04/05/24 01:09 Primary care physician: Not a Local Provider Admitting Clinician: Jasmin Almanza MD Attending Physician on discharge: Yaa Drake CNM Date of Discharge: 04/06/24 DS: Diagnosis Discharge Diagnosis (1) care and examination of lactating mother: Status: Acute (2) (normal spontaneous vaginal delivery): Status: Acute Exam Narrative: Exam Narrative: VSS, afebrile GENERAL APPEARANCE: ?normal affect, alert, no distress MOOD: ?appropriate HEENT: normocephalic, neck supple, full ROM CHEST: ?Symmetrical chest wall movement. ?Normal respiratory effort. ?Clear to auscultation HEART: ?regular rate and rhythm ABDOMEN: ?soft, non-tender. Uterine fundus is firm, at Umbilicus, Midline and is appropriate for the stage of recovery. ?Bowel sounds present. PERINEUM: ?mild edema of the perineum, there is a periurethral lacerations that is healing well. EXTREMITIES: ?normal and no edema Const: Vital Signs, click to edit/add: Vital Signs - 24 hr 04/05/24 11:32 04/05/24 16:29 04/05/24 19:38 Temperature 97.6 F 97.9 F 97.8 F Pulse Rate [Pulse Oximeter] 79 85 Respiratory Rate 16 16 Blood Pressure [Le ft Arm] 105/71 103/69 Pulse Oximetry 98 98 Oxygen Delivery Me thod Room Air Room Air 04/05/24 19:45 04/05/24 23:15 04/06/24 04:00 Temperature 97.8 F 97.5 F L 97.4 F L Pulse Rate [Pulse Oximeter] 87 83 Respiratory Rate 16 16 12 Blood Pressure [Le ft Arm] 115/76 120/81 105/63 Pulse Oximetry 97 98 Oxygen Delivery Me thod Room Air Room Air Documenting provider has reviewed patient's vital signs: yes OB - DS: Summary Hospital Course Hospital Course: Nicole is a 33 y.o. who was admitted to [facility] for labor. ?She had an uncomplicated NVD.?The patient feels well. ?The pain is well controlled with current medications. ?She has no new complaints. ?She is breast feeding and reports things are going well.? the patient has done well.? Vitals have been stable.? She has remained afebrile.? Has a good appetite, is tolerating a general diet. ?She is voiding without difficulty.? She is passing gas and has not had a bowel movement.? She is ambulating and denies any dizziness.? Has Small amount of rubra lochia. ?She is undecided on what she is planning for prevention. Peripartum Data delivery method: Vaginal Laceration description: Periurethral - 1st Degree complications: none Gender: Male Infant Discharge Plan: Home Infant A Infant Gender: Male Status at Discharge Functional status at discharge: independent ambulation Overall status at discharge: patient is progressing back to baseline Time Spent with Patient Time attestation: Total time spent providing and/or coordinating discharge services: Time spent: Less than 30 minutes Discharge Plan Discharge Disposition: Home, Self-Care Date of Admission: 04/05/24 01:09 Attending Provider on Discharge: Yaa Drake Primary Care Provider: Provider,Not a Local Condition: Stable Anticipated Discharge Date/Time: 04/06/24 12:00 Discharge Medications: New acetaminophen 500 mg Tablet 1,000 mg PO Q6H PRN (Reason: pain/fever) Qty: 0 0RF docusate sodium 100 mg Capsule 100 mg PO DAILY Qty: 90 0RF ibuprofen 600 mg Tablet 600 mg PO Q6H PRNQty: 60 0RF Continued PNV-DHA 27 mg iron-1 mg -300 mg capsule 1 cap PO DAILY Discharge Orders: Discharge Order (Routine); Ordered 04/06/24 Ordered By: Yaa Drake Patient Education: OB Over the Counter Medication Information, OB Vaginal/Breast Feeding Additional Instructions: Discharge instructions were reviewed with the patient including signs and symptoms of infection and home going medications Nothing vaginally for 6 weeks: no tampons or intercourse Off Work or School for 6 weeks 2-week visit: discuss feeding concerns, review control options and screen for anxiety/depression. 6-week visit for an annual exam. consultation services are available to all mothers and babies for the first year after delivery.? To make an appointment, please call [phone]. Activity Level: Activity as Tolerated Discharge Diet: Regular Follow Up Appointments: [facility] [Provider Group] Forms: [employer] Info Instructions
[2024-04-06] MEDS: DOCUSATE SODIUM 100 MG CAPSULE PO (07:18)
[2024-04-06] MEDS: IBUPROFEN 600 MG TABLET PO (07:18)
[2024-04-07 01:55] LABS: Rapid Plasma Reagin (RPR) Non Reactive (Non Reactive)
== END 2024-04-06 10:21 | disposition home or self-care (01) | DRG 560 ==
LOC: OB OUT 01:09 → OB 01:09
PROVIDERS: Admitting Provider Obstetrics & Gynecology; Visit Provider Obstetrics & Gynecology
DX: O99.344 Other mental disorders complicating childbirth (principal); F32.A Depression, unspecified; F41.9 Anxiety disorder, unspecified; O62.3 Precipitate labor; O70.0 First degree perineal laceration during delivery; Z37.0 Single live birth; Z3A.39 39 weeks gestation of pregnancy
CPT/HCPCS: 01967; 36415; 85018; 85025; 86592; 86850; 86900; 86901; A9270; J2371; J2405; J2795; J7120

== ENCOUNTER 2024-04-19 13:44 | Outpatient (CLI) | payer BC, SELFPAY | END 2024-04-19 13:45 | disposition home or self-care (01) | LOC: US 13:44 | PROVIDERS: Visit Provider Obstetrics & Gynecology | DX: O72.1 Other immediate postpartum hemorrhage (principal) | CPT/HCPCS: 76856 ==

== ENCOUNTER 2024-04-22 11:48 | Day surgery (SDC) | payer BC, SELFPAY ==
[2024-04-22] MEDS: DOXYCYCLINE HYCLATE 200 MG in 0.9 % SODIUM CHLORIDE 250 ml 250 ML 250 MG IVPB (12:25)
[2024-04-22] MEDS: SODIUM CHLORIDE 0.9 % (FLUSH) 10 ML SYRINGE IVF (12:27)
[2024-04-22] MEDS: 0.9 % SODIUM CHLORIDE 500 ML 500 ML 100 ML IV (12:27)
[2024-04-22 12:28] VITALS: BMI 23.1
[2024-04-22 12:34] LABS: Hemoglobin* 13.8 gm/dL (12.0-16.0)
[2024-04-22 12:35] VITALS: BP 104/67; PULSE 69; RESP 16; TEMP 36.7; O2SAT 98
--- NOTE | 2024-04-22 13:40 | W.PM.H&PU ---
History & Physical Update History & Physical Update H&P Updates: Currently having bleeding. Low volume and less than previously.
--- NOTE | 2024-04-22 13:46 | P.ANES_ITS ---
Anesthesia Charges Start Date/Time Anesthesia Start Date: 04/22/24 Anesthesia Start Time: 13:40 Stop Date/Time Anesthesia Stop Date: 04/22/24 Anesthesia Stop Time: 14:36 Coding CPT Codes CPT Codes: ANESTH HYSTEROSCOPE/GRAPH - 79956 ([id number]) P2 - PATIENT W/MILD SYST DISEASE, QK - DIRECTOR OF ACQUISITION MARKETING 2-4 CNCRNT ANES PROC, QX - INFECTION CONTROL RN SVC W/ MD MED DIRECTION
--- NOTE | 2024-04-22 13:46 | W.ANESCHARGE ---
Anesthesia Charges Start Date/Time Anesthesia Start Date: 04/22/24 Anesthesia Start Time: 13:40 Stop Date/Time Anesthesia Stop Date: 04/22/24 Anesthesia Stop Time: 14:36 Coding CPT Codes CPT Codes: ANESTH HYSTEROSCOPE/GRAPH - 67936 ([id number]) P2 - PATIENT W/MILD SYST DISEASE, QK - STRETCHING MACHINE OPERATOR 2-4 CNCRNT ANES PROC, QX - SALES ARCHITECT SVC W/ MD MED DIRECTION
--- NOTE | 2024-04-22 14:06 | W.ANESCHARGE ---
Anesthesia Charges Start Date/Time Anesthesia Start Date: 04/22/24 Anesthesia Start Time: 13:40 Stop Date/Time Anesthesia Stop Date: 04/22/24 Anesthesia Stop Time: 14:48 Coding CPT Codes CPT Codes: ANESTH HYSTEROSCOPE/GRAPH - 26253 ([id number]) P2 - PATIENT W/MILD SYST DISEASE, QK - PERSONAL PROPERTY APPRAISER 2-4 CNCRNT ANES PROC, QX - LABORATORY IMMUNOLOGIST SVC W/ MD MED DIRECTION
--- NOTE | 2024-04-22 14:06 | P.ANES_ITS ---
Anesthesia Charges Start Date/Time Anesthesia Start Date: 04/22/24 Anesthesia Start Time: 13:40 Stop Date/Time Anesthesia Stop Date: 04/22/24 Anesthesia Stop Time: 14:48 Coding CPT Codes CPT Codes: ANESTH HYSTEROSCOPE/GRAPH - 48731 ([id number]) P2 - PATIENT W/MILD SYST DISEASE, QK - NUCLEAR FUELS RESEARCH ENGINEER 2-4 CNCRNT ANES PROC, QX - ELECTRICAL INSTRUMENTATION TECHNICIAN SVC W/ MD MED DIRECTION
--- NOTE | 2024-04-22 14:40 | W.PM.GYNPROC ---
Procedure Note Time Seen by Provider: 14:40 Date of procedure: 04/22/24 Will [facility] bill your pro fee for this procedure?: Yes Pre-op diagnosis: 1. Abnormal uterine bleeding 2. Retained placenta Post-op diagnosis: 1. Abnormal uterine bleeding 2. Retained placenta Procedure: 1. Exam under anesthesia 2. Hysteroscopy 3. Curettage Anesthesia: MAC Complications: None Surgeon: Sosa Hernandez MD Estimated blood loss (mL): 20 IV fluids (mL): 500 Urine Output (mL): 150 Pathology: specimen obtained, sent to pathology (Retained placenta) Condition: stable Disposition: same day Findings: Exam under anesthesia: Mons normal, clitoris normal, urethral meatus normal. Labia minora and majora normal in appearance bilaterally. Perineum and anus normal appearance. Vaginal introitus normal appearance. Vaginal pink and well rugated with small amount of old brown blood. Cervix pink and without lesion - dilated to a 1 cm. Bimanual exam reveals uterus to be soft, nontender, mobile, anteverted, of normal size and texture. No palpable adnexal masses or tenderness. On hysteroscopy: Retained placenta noted on posterior uterus. Uterine fundus appeared normal. Normal bilateral tubal ostia. Procedure Description: Procedure: Nicole was taken to the operating where conscious sedation was found to be adequate. She was placed in the dorsal lithotomy position. An exam under anesthesia was performed with findings stated above. She was then prepped and draped in normal sterile manner. Bladder drained with straight catheterization. A bivalve metal speculum was placed in the vaginal canal. The cervix and vaginal canal appear normal. The anterior lip of the cervix was then grasped with a long Allis clamp. The cervix did not need dilation. The uterus sounded to 9 cm. The hysteroscope advanced into the uterus and a diagnostic hysteroscopy was performed with findings stated above. Normal saline was used as the insufflation medium. Soft tissue shaver was used to perform retained placenta removal. I had to switch to sharp curettage due to amount of placenta retained on the posterior uterine wall, poor hydrodistension due to open cervix, and intermittent loss of visualization due to bleeding. Hysteroscopy was utilized intermittently to assured that all placental parts were removed. The uterus and documented a normal appearing uterine cavity at the end of the procedure. Fluid deficit at the end of the procedure 620mL. Total fluid: 7000 mL The hysteroscope and Allis clamp were removed from the uterus and cervix. Excellent hemostasis noted. Nothing was used for hemostasis. The patient tolerated the procedure well. Sponge, lap and instruments counts were correct at the end of the procedure. The patient was awakened from anesthesia and taken to the recovery area in stable condition. Surgical debrief performed at the end of the procedure.
[2024-04-22 14:45] VITALS: BP 109/62; PULSE 63; RESP 16; TEMP 36.5; O2SAT 97
[2024-04-22 15:00] VITALS: BP 106/66; PULSE 66; RESP 16; O2SAT 97
[2024-04-22 15:15] VITALS: BP 93/67; PULSE 61; RESP 16; TEMP 36.5; O2SAT 98
[2024-04-22 15:30] VITALS: BP 106/67; PULSE 74; RESP 16; O2SAT 98
== END 2024-04-22 15:56 | disposition home or self-care (01) ==
PROVIDERS: Visit Provider Obstetrics & Gynecology
PROC: 0UDB8ZZ Extraction of Endometrium, Via Natural or Artificial Opening Endoscopic (ICD-10-PCS; CPT 58558; principal; 2024-04-22 13:30)
DX: O72.2 Delayed and secondary postpartum hemorrhage (principal)
CPT/HCPCS: 59160; 58579; 00952; 36415; 85018; 86850; 86900; 86901; 88305; C1782; J1100; J2250; J2405; J2704; J3010; J3490; J7030; J7050